=== PATIENT | male | born 2000 | race Hispanic/Latino ===

== ENCOUNTER 2022-09-05 21:01 | Emergency (ER) | payer BC ==
[~2022-09-05] VITALS: Ht 177.8 cm; Wt 55.3 kg
[2022-09-05 21:04] VITALS: BP 113/58
[2022-09-05] MEDS ORDERED: ACET-841 PO (21:10)
[2022-09-06] MEDS ORDERED: IBUPROFEN 800 MG TAB PO ONE (00:05)
[2022-09-06] MEDS ORDERED: AUGMENTIN 875 MG TAB PO ONE (00:05)
[2022-09-06] MEDS ORDERED: AMOX875T2 PO (00:08)
== END 2022-09-06 00:20 | disposition home or self-care (01) ==
LOC: M ED 21:01
DX: J02.0 Streptococcal pharyngitis (principal)